=== PATIENT | male | born 1980 | race Caucasian/White ===

== ENCOUNTER → 2020-08-01 14:04 | Outpatient (REF) | payer BC, SELFPAY | LOC: HO.SL 14:04 | PROVIDERS: PCP Internal Medicine; Visit Provider Internal Medicine | DX: R06.81 Apnea, not elsewhere classified (principal) | CPT/HCPCS: 95806 ==

== ENCOUNTER 2020-11-28 10:34 | Outpatient (REF) | payer BC, SELFPAY ==
[2020-11-28 12:24] LABS: Basophils Absolute Auto 0.1 X10*3/uL (0.0-0.2); Basophils Percent Auto 0.8 % (0-2); Eosinophils Absolute Auto 0.2 X10*3/uL (0.0-0.4); Eosinophils Percent Auto 3.2 % (0-4); Hemoglobin 15.5 g/dl (14.0-18.0); Imm Gran Abs Auto 0.08 X10*3/uL (0.00-0.03); Imm Gran Pct Auto 1.1 % (0.0-0.4); Lymphocytes Absolute Auto 1.6 X10*3/uL (1.2-4.9); Lymphocytes Percent Auto 22.1 % (20-40); MANUAL DIFF FLAG SCAN; Mean Corpuscular Hemoglobin 29.5 pg (27.0-33.0); Mean Corpuscular Volume 89.5 fL (80-98); Monocytes Absolute Auto 0.5 X10*3/uL (0.1-1.2); Neutrophils Absolute Auto 4.8 X10*3/uL (2.0-8.3); Neutrophils Percent Auto 65.8 % (45-73); PLT CLUMP 1; Red Blood Count 5.25 X10*6/uL (4.60-5.80); Red Cell Distribution Width 12.1 % (11.0-16.0); SCAN SMEAR FLAG 1
[2020-11-28 12:56] LABS: Platelet Count 118 X10*3/uL (160-400); White Blood Count 7.3 X10*3/uL (4.8-10.8)
[2020-11-28 12:59] LABS: SLIDE REVIEW VERIFIED
[2020-11-28 13:04] LABS: Glucose Urine UA NEG (NEG); Leukocyte Esterase Urine NEG (NEG); Nitrite Urine NEG (NEG); Specific Gravity - Urine >= 1.030 (1.005-1.025); Urine Blood NEG (NEG); Urine Ketones NEG (NEG); Urine Protein TRACE MG/DL (NEG-TRACE)
[2020-11-28 13:08] LABS: Appearance Urine CLEAR; Color Urine YELLOW
== END 2020-11-28 10:35 | disposition home or self-care (01) ==
LOC: HO.LAB 10:34
PROVIDERS: PCP Internal Medicine; Visit Provider Internal Medicine
DX: Z00.00 Encounter for general adult medical examination without abnormal findings (principal); E66.9 Obesity, unspecified
CPT/HCPCS: 36415; 81003; 85025

== ENCOUNTER → 2021-01-08 15:13 | Outpatient (BNVA) | payer BC, SELFPAY | PROVIDERS: PCP Internal Medicine; Visit Provider Surgery | DX: K64.4 Residual hemorrhoidal skin tags (principal); Z90.49 Acquired absence of other specified parts of digestive tract; Z79.899 Other long term (current) drug therapy | CPT/HCPCS: 46600 ==

== ENCOUNTER 2021-03-02 06:02 | Day surgery (SDC) | payer BC, SELFPAY ==
[2021-02-22 14:47] VITALS: BMI 31.4
--- NOTE | 2021-02-28 15:24 | HO.ANESPROP2 ---
Documented by User: Marlene Harrell NP 02/28/21 15:26 HPI - Anesthesia Eval Consult details Narrative: 40yo M for EUA, Hemorrhoidectomy Probably ADRIAN PMFSH Active Problems Active Problems: All Active Problems (Updated 01/08/21 @ 15:55 by Thong Kim MD) Hemorrhoids with complication (Acute) Skin lesion of face (Acute) External hemorrhoids (Acute) Obstructive sleep apnea (Acute) Annual physical exam (Acute) Obesity (BMI 30-39.9) (Acute) Anxiety (Acute) Insomnia (Acute) Past Medical History Medical History Anxiety External hemorrhoids Hemorrhoids with complication Insomnia Obesity (BMI 30-39.9) Obstructive sleep apnea Skin lesion of face Witnessed apneic spells Family History Family History Mother COPD (chronic obstructive pulmonary disease) Other Family history non-contributory Substance abuse Surgical History Surgical History History of esophagogastroduodenoscopy (EGD) (~2012) S/P laparoscopic cholecystectomy (~2008) Social History Social History (Updated 03/02/21 @ 07:35 by Nery Bond MD) Housing: House Alcohol intake: current Alcohol intake frequency: holidays/special occasions only Patient Tobacco Use Status: Former Tobacco user Tobacco use type: Cigarette Second Hand Smoke Exposure: Yes Use of substances other than those prescribed or required for medical reasons: No Substance Use Type: Marijuana Substance Use Frequency: Daily Last Used Substance: Hours (ago) Currently Displaying Signs/Symptoms of Drug Intoxication Withdrawal: No Have you been hit, kicked, punched, or otherwise hurt by someone within the past year? If so, by whom?: No Are you DNR?: No Advance Directives: No Advance Directives Information Provided: No Advance Directives on File: No Recently lost weight without trying: No Eating poorly because of decreased appetite: No Nutrition Risks: No Nutritional Risk service: No Current occupational status: employed Current occupation: systems adm Meds Allergies Allergy/AdvReac Type Severity Reaction Status Date / Time No Known Allergies Allergy Verified 02/22/21 14:45 Home Medications Medication Instructions Recorded Confirmed Last Taken Type finasteride 5 mg tablet 1 mg PO DAILY tab 01/08/21 02/22/21 Unknown History escitalopram oxalate 10 mg tablet 1 tab PO DAILY 02/22/21 02/22/21 Unknown History ibuprofen 200 mg tablet 400 mg PO Q8H PRN 02/22/21 02/22/21 Unknown History Exam Exam Date and Time: February 28, 2021 1524 Height,Weight and Vital Signs: Height 5 ft 11 in Weight 102.058 kg Assessment and Plan Assessment Anesthesia Assessment: Chart Reviewed Documented by User: Nery Bond MD 03/02/21 07:53 HPI - Anesthesia Eval Consult details Narrative: 40yo M for EUA, Hemorrhoidectomy ADRIAN PMFSH Past Medical History Medical History Anxiety External hemorrhoids Hemorrhoids with complication Insomnia Obesity (BMI 30-39.9) Obstructive sleep apnea Skin lesion of face Witnessed apneic spells Family History Family History Mother COPD (chronic obstructive pulmonary disease) Other Family history non-contributory Substance abuse Family history of problems with anesthesia: No Surgical History Surgical History History of esophagogastroduodenoscopy (EGD) (~2012) S/P laparoscopic cholecystectomy (~2008) History of Problems with Anesthesia: No Social History Social History (Updated 03/02/21 @ 07:35 by Nery Bond MD) Housing: House Alcohol intake: current Alcohol intake frequency: holidays/special occasions only Patient Tobacco Use Status: Former Tobacco user Tobacco use type: Cigarette Second Hand Smoke Exposure: Yes Use of substances other than those prescribed or required for medical reasons: No Substance Use Type: Marijuana Substance Use Frequency: Daily Last Used Substance: Hours (ago) Currently Displaying Signs/Symptoms of Drug Intoxication Withdrawal: No Have you been hit, kicked, punched, or otherwise hurt by someone within the past year? If so, by whom?: No Are you DNR?: No Advance Directives: No Advance Directives Information Provided: No Advance Directives on File: No Recently lost weight without trying: No Eating poorly because of decreased appetite: No Nutrition Risks: No Nutritional Risk service: No Current occupational status: employed Current occupation: systems adm Meds Allergies Allergy/AdvReac Type Severity Reaction Status Date / Time No Known Allergies Allergy Verified 02/22/21 14:45 Home Medications Medication Instructions Recorded Confirmed Last Taken Type finasteride 5 mg tablet 1 mg PO DAILY tab 01/08/21 02/22/21 Unknown History escitalopram oxalate 10 mg tablet 1 tab PO DAILY 02/22/21 02/22/21 Unknown History ibuprofen 200 mg tablet 400 mg PO Q8H PRN 02/22/21 02/22/21 Unknown History Exam Height,Weight and Vital Signs: Height 5 ft 11 in Weight 102.058 kg Vital Signs Temp Pulse Resp BP Pulse Ox 03/02/21 06:29 97.5 F 66 16 109/70 98 Airway Mallampati Class: III TM Dist: >3cm Neck ROM: Full Loose/Missing/Broken Teeth: No Heart: RRR Lungs: CTAB Assessment and Plan Assessment Anesthesia Assessment: Anesthesia Plan Discussed Final Anesthetic Review Family History of Problems with Anesthesia: No History of Problems with Anesthesia: No NPO: Yes ASA Class: III Final Preanesthetic Review: No Changes in Pt Med Stat, Meds/Allgs Chart Reviewed, Consent Obtained/Reviewed and Anes Risks/Benef Reviewed Patient Risk: Intermediate Procedure Risk: Low Assessment/Block/Sedation in SS: Assess/Block/Sedation-SS Anesthetic Plan Anesthetic Plan: GA Disposition: Standard PACU
[2021-03-02] VITALS (14 sets, daily range): BP systolic 83–146; BP diastolic 49–94; PULSE 64–90; RESP 16–20; TEMP 36.1–36.7; O2SAT 96–100
[2021-03-02] MEDS: Lactated Ringers 1,000 ML 100 ML IVCONT (06:50)
--- NOTE | 2021-03-02 07:20 | MHC.SHP ---
Pre-Procedural Eval Section A Date of Service: 03/02/21 Section B Chief Complaint: Hemorrhoids with complication Details of Present Illness: has frequent swelling hemorrhoids, difficulty with hygiene Relevant Family History (Specify if Yes): No Relevant Social History: None Medical History: Significant History (Sleep apnea, obesity, anxiety) History of Previous Operations: No relevant previous surgery Allergies: Allergies Allergy/AdvReac Type Severity Reaction Status Date / Time No Known Allergies Allergy Verified 02/22/21 14:45 Review of Systems Sugical H&P ROS: Negative: Constitution, Cardiovascular, Respiratory, Neurological, Psychiatric, Hem-Onc, Allergic/Immunologic, Gastrointestinal, Genitourinary, Musculoskeletal, Integumentary, Endocrine and Eyes/Ears/Nose/Throat Exam Surgical H&P Exam: Normal: HEENT, Normal: Heart, Normal: Lungs, Normal: Extremities, Normal: Abdomen, Normal: Skin and Normal: Neurological Exam Comment: Hemorrhoids left and right Plan Diagnosis/Plan: Unchanged I have reviewed the history and physical and performed a pertinent physical examination on my patient. No changes have occurred unless specified.
--- NOTE | 2021-03-02 08:15 | W.PM.OPN ---
Operative Note Operative Note Date of Service: 03/02/21 Narrative: Preop diagnosis: Internal and external hemorrhoids, with pain and bleeding Postop diagnosis: The same Procedure: Exam under anesthesia, hemorrhoidectomy x3 columns Surgeon: Thong Kim MD Patient is a 40-year-old male was had chronic complaints with hemorrhoids. He describes swelling, pain, bleeding and difficulty with hygiene. Examination in the office showed bulky hemorrhoidal columns on the left and right side. He wanted to proceed with hemorrhoidectomy. He understood the technique of the procedure as well as the risks, benefits, and alternatives Was brought to the operating room and placed in prone jian-knife position under general anesthesia via endotracheal tube. The buttocks were retracted with wide tape laterally. The perianal area was prepped and draped in the usual sterile fashion. A surgical time-out was done. The patient received Cefotan 2 g IV preoperatively. The perianal area was infiltrated with lidocaine 1%. Examination of the anal orifice showed bulky external hemorrhoid columns, on the left side, the right side, as well as left posteriorly I inserted abuse Faulkner retractor. I examined the anal canal circumferentially. Again this hemorrhoids were noted and were seen to be a mix of internal external columns. I applied a Boggs grasper at the bulky hemorrhoidal column on the left. I made a rmeskm-[id number]-[id number] stitch at the pedicle using chromic 3-0. I made incision around this hemorrhoidal column to the perianal skin using blade 15. I excised this hemorrhoidal column above the plane of sphincters along this incision using Metzenbaum scissors although the pedicle. I closed this incision with a running chromic 3-0 stitch, and placed additional hemostatic [id number] sutures. I then proceeded to apply the Boggs grasper on the large hemorrhoidal column on the right. Again I placed a ghqdto-cp-fhyyj stitch at the pedicle. I made anincision around this hemorrhoidal column to the perianal skin and excised this hemorrhoidal column above the plane of sphincters using scissors. I closed this incision again with a chromic 3-0 stitch with additional hemostatic sutures being placed. There was a smaller external hemorrhoid column on the left posterior which was excised in the same fashion as well. I proceeded to observe for hemostasis. Once hemostasis was ensured, I proceeded to then place a Gelfoam packing through the anal canal. I infiltrated the perianal area with Marcaine 0.5% for postop analgesia. The procedure was then completed The patient tolerated procedure well. There were no complication noted. Initial and final counts of sponges and instruments were correct. Estimated blood loss wasabout 50 cc The patient is extubated without difficulty and transferred to recovery room with stable vital signs.
--- NOTE | 2021-03-02 08:20 | P.BOP_ITS ---
Brief Operative Note Date of Service: 03/02/21 Pre-op diagnosis: Internal hemorrhoidal columns Post-op diagnosis: same Procedure: EUA, hemorrhoidectomy x3 columns Surgeon: Thong Kim MD Anesthesia: GETA Was an Steel Layout Worker used for this Procedure?: No Estimated blood loss (mL): 50 Pathology: other (Hemorrhoids) Condition: stable Disposition: PACU
[2021-03-02] MEDS: oxyCODONE HCl Immed Release 5 MG TABLET 10 MG PO (08:29)
[2021-03-02] MEDS: Acetaminophen 325 MG TABLET 975 MG PO (08:29)
[2021-03-02] MEDS: Ketorolac Tromethamine 15 MG/ML VIAL IVPUSH (08:36)
[2021-03-02] MEDS: fentaNYL citrate/PF 100 MCG/2 ML VIAL 50 MCG IVPUSH (08:36)
[2021-03-02] MEDS: fentaNYL citrate/PF 100 MCG/2 ML VIAL 25 MCG IVPUSH ×6 (08:37→09:21)
== END 2021-03-02 10:35 | disposition home or self-care (01) ==
PROVIDERS: PCP Internal Medicine; Visit Provider Surgery
PROC: (CPT 46260; principal; 2021-03-02 07:30)
DX: K64.8 Other hemorrhoids (principal); K64.4 Residual hemorrhoidal skin tags; G47.33 Obstructive sleep apnea (adult) (pediatric); G47.00 Insomnia, unspecified; L98.9 Disorder of the skin and subcutaneous tissue, unspecified; F41.9 Anxiety disorder, unspecified; E66.9 Obesity, unspecified; Z90.49 Acquired absence of other specified parts of digestive tract; Z87.891 Personal history of nicotine dependence
CPT/HCPCS: 46260; 88304; J1100; J1885; J2250; J2405; J3010

== ENCOUNTER → 2021-03-15 10:53 | Outpatient (BNVA) | payer BC, SELFPAY | PROVIDERS: PCP Internal Medicine; Referring Provider Internal Medicine; Visit Provider Surgery ==

== ENCOUNTER → 2021-04-12 11:41 | Outpatient (BNVA) | payer BC, SELFPAY | PROVIDERS: PCP Internal Medicine; Referring Provider Internal Medicine; Visit Provider Surgery ==